=== PATIENT | male | born 1965 | race Hispanic/Latino ===

== ENCOUNTER 2017-01-01 19:19 | Inpatient (IN) | payer MEDICARE, OTHER ==
[2017-01-01 19:19] VITALS: BMI 28.0
[2017-01-01 19:35] VITALS: O2SAT 98
[2017-01-01 20:32] LABS: RBC URINE 7 /hpf (0-3); URINE BACTERIA RARE (<OCC); URINE BILIRUBIN NEGATIVE (NEGATIVE); URINE BLOOD 1+ (NEGATIVE); URINE COLOR Yellow (YELLOW); URINE GLUCOSE (UA) NORMAL (Normal); URINE KETONE NEGATIVE (NEGATIVE); URINE LEUKOCYTE ESTERASE NEG Leu/uL (Negative); URINE PROTEIN NEGATIVE (NEGATIVE); WBC URINE 1 /hpf (0-5)
[2017-01-01 21:00] LABS: BASO % 0.6 % (0.0-2.0); EOS # 0.3 K/uL (0.0-0.7); EOS % 6.3 % (0.0-4.0); HEMATOCRIT 38.1 % (35.0-51.0); LYMPH # 2.1 K/uL (1.0-4.3); LYMPH % 40.3 % (20.0-40.0); MEAN CELL VOLUME 84.6 fL (80.0-94.0); MEAN CORPUSCULAR HEMOGLOBIN 28.1 pg (27.0-31.0); MEAN CORPUSCULAR HGB CONC 33.2 g/dL (33.0-37.0); MEAN PLATELET VOLUME 7.5 fL (7.2-11.7); MONO # 0.6 K/uL (0.0-0.8); MONO % 11.7 % (0.0-10.0); NRBC % 0.1 % (0.0-2.0); RED CELL DISTRIBUTION WIDTH 16.3 % (11.5-14.5); WHITE BLOOD COUNT 5.3 K/uL (4.8-10.8)
[2017-01-01 21:05] LABS: CHLORIDE 99 mmol/L (98-107); POTASSIUM 3.5 mmol/L (3.6-5.2); SODIUM 139 mmol/L (132-148)
[2017-01-01 21:07] LABS: ALB/GLOB RATIO 1.1 (1.0-2.1); ALKALINE PHOSPHATASE 60 U/L (38-126); ALT/SGPT 23 U/L (21-72); AST/SGOT 34 U/L (17-59); BILIRUBIN,TOTAL 0.3 mg/dL (0.2-1.3); BLOOD UREA NITROGEN 11 mg/dL (9-20); CARBON DIOXIDE 26 mmol/L (22-30); GFR AFRICAN-AMERICAN > 60; TOTAL PROTEIN 7.2 g/dL (6.3-8.3)
[2017-01-01 21:08] LABS: ALCOHOL SERUM < 10 mg/dl (0-10); CALCIUM 8.5 mg/dl (8.6-10.4); GLUCOSE,RANDOM 90 mg/dL (75-110)
--- NOTE | 2017-01-01 21:43 | C.PDOC ---
History Of Present Illness Patient presents to the ED for depression and thoughts of harming himself. Patient has no plan and denies homicidal thoughts or any other complaints. Patient has not been taking his medication. Time Seen by Provider: 01/01/17 20:14 Chief Complaint (Nursing): Psychiatric Evaluation History Per: Patient History/Exam Limitations: no limitations Onset/Duration Of Symptoms: Unknown Current Symptoms Are (Timing): Still Present Suicide/Self Injury Attempted (Context): None Modifying Factor(s): None Associated Symptoms: Depression, Suicidal Thoughts. denies: Suicidal Plan Involuntary Hold By: None Recent travel outside of the [place]: No Past Medical History Reviewed: Historical Data, Nursing Documentation, Vital Signs Vital Signs: Last Vital Signs Temp 97.4 F L 01/01/17 19:31 Pulse 62 01/01/17 19:31 Resp 16 01/01/17 19:31 BP 145/92 H 01/01/17 19:31 Pulse Ox 98 01/01/17 21:52 - Medical History PMH: Anxiety, Atrial Fibrillation, Bipolar Disorder, CAD, Depression, Hepatitis , HIV, HTN, Pneumonia, Post Traumatic Stress Disorder Denies: Diabetes, Chronic Kidney Disease, Seizures, Sexually Transmitted Disease - [facility] GROUP PSYCHOTHERAPY (12/11/16) INDIVIDUAL PSYCHOTHERAPY, SUPPORTIVE (12/11/16) MEASURE OF CARDIAC SAMPL & PRESSURE, L HEART, PERC APPROACH (11/22/16) MEDICATION MANAGEMENT (12/11/16) PLAIN RADIOGRAPHY OF LEFT HEART USING LOW OSMOLAR CONTRAST (11/22/16) Family History: States: Unknown Family Hx - Social History Hx Tobacco Use: Yes Hx Alcohol Use: Yes (in recovery) Hx Substance Use: Yes (in recovery) - Immunization History Hx Tetanus Toxoid Vaccination: No Hx Influenza Vaccination: No Hx Pneumococcal Vaccination: No Review Of Systems Gastrointestinal: Negative for: Nausea, Vomiting, Diarrhea Psych: Positive for: Depression, Suicidal ideation (no plan) Physical Exam - Physical Exam Appears: Non-toxic Skin: Warm, Dry Extremity: Normal ROM, No Tenderness Neurological/Psych: Oriented x3 ED Course And Treatment - Laboratory Results Result Diagrams: 01/01/17 20:49 01/01/17 20:49 O2 Sat by Pulse Oximetry: 98 Disposition Discussed With : Rao Monsalve Comment: accepted the pt on his service and took over the care at 10:14 PM Doctor Will See Patient In The: Hospital Counseled Patient/Family Regarding: Studies Performed, Diagnosis - Disposition Disposition: HOSPITALIZED Disposition Time: 21:43 Condition: FAIR - POA Present On Arrival: None - Clinical Impression Clinical Impression: Bipolar 1 disorder - Scribe Statement The provider has reviewed the documentation as recorded by the Scribe Yue Pendleton All medical record entries made by the Scribe were at my direction and personally dictated by me. I have reviewed the chart and agree that the record accurately reflects my personal performance of the history, physical exam, medical decision making, and the department course for this patient. I have also personally directed, reviewed, and agree with the discharge instructions and disposition. Decision To Admit - Pt Status Changed To: Hospital Disposition Of: Inpatient - Admit Certification Admit to Inpatient:: After my assessment, the patient will require hospitalization for at least two midnights. This is because of the severity of symptoms shown, intensity of services needed, and/or the medical risk in this patient being treated as an outpatient. - InPatient: Physician Admission Certification: I certify that this patient requires 2 or more midnights of care for the following reason:: After my assessment, the patient will require hospitalization for at least two midnights. This is because of the severity of symptoms shown, intensity of services needed, and/or the medical risk in this patient being treated as an outpatient. - . Bed Request Type: Psychiatry Admitting Physician: Rao Monsalve Patient Diagnosis: Bipolar 1 disorder
[2017-01-02] MEDS ORDERED: Pneumococcal 23-Valent Vaccine IM ONE (01:36)
[2017-01-02] MEDS ORDERED: Influenza Virus Vaccine 45 mcg/0.5 ml Syr IM ONE (01:36)
--- NOTE | 2017-01-02 14:22 | PCM.PSYCH ---
Initial Psychiatric Evaluation - Initial Psychiatric Evaluation History of Present Illness and Precipitating Events: Patient refuses to talk, refuses to provide any information. Very uncooperative. We will attempt to evaluate patient later. Current Medications: Active Medications Generic Name Dose Route Start Last Admin Trade Name Freq PRN Reason Stop Dose Admin Trazodone HCl 150 mg 01/02/17 00:37 Desyrel PO HS PRN Sleep Past Psychiatric History - Past Psychiatric History Pertinent Medical Hx (Current Medical&Sleep Prob, Allergies): Allergies Allergy/AdvReac Type Severity Reaction Status Date / Time FISH Allergy Intermediate Verified 01/01/17 19:36 metoprolol Allergy Verified 01/01/17 19:36 Divalproex [Depakote DR] 500 mg PO BID 11/22/16 Gabapentin [Neurontin] 600 mg PO QID 11/22/16 Haloperidol [Haldol] 10 mg PO BID 11/22/16 OXcarbazepine [Trileptal] 600 mg PO TID 11/22/16 diltiaZEM [Diltiazem HCl] 30 mg PO QID #56 tab 12/06/16 Citalopram Hydrobromide [Celexa] 20 mg PO DAILY 12/09/16 traZODone [Desyrel] 150 mg PO DAILY 12/09/16
[2017-01-02] MEDS: Divalproex 500 mg DR Tab PO SCH (19:20)
[2017-01-03] MEDS: Divalproex 500 mg DR Tab PO SCH ×2 (10:16→18:29)
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
[2017-01-04] MEDS: Divalproex 500 mg DR Tab PO SCH ×2 (09:49→17:12)
--- NOTE | 2017-01-04 12:45 | PCM.PYCHPN ---
Psychiatric Progress Note - Psychiatric Progress Note Patient seen today, length of contact: 15 min Patient Chief Complaint: I'm still feeling irritable Problems Identified/Issues Discussed: Patient seen and evaluated, chart reviewed and discussed with the nurse. Patient reports irritability and agitation. He reports racing of thoughts and flight of ideas and anxiety. He remained isolated and withdrawn. However he remained calm and cooperative. He has started attending groups, started taking medication and denies any side effects. Supportive therapy and psychoeducation were given Medication Change: Yes (Increase Depakote) Medical Record Reviewed: Yes Mental Status Examination - Cognitive Function Orientation: Person, Place, Situation, Time Memory: Intact Attention: WNL Concentration: Poor Association: WNL Fund of Knowledge: Poor - Mood Mood: Depressed - Affect Affect: Depressed - Speech Speech: Soft - Formal Thought Process Formal Thought Process: Flight of ideas - Suicidal Ideation Suicidal Ideation: No - Homicidal Ideation Homicidal Ideation: No Goal/Treatment Plan - Goal/Treatment Plan Need for Continued Stay: Discharge may exacerbated symptoms, Severe functional impairment Progress Toward Problem(s) and Goals/Treatment Plan: Bipolar 1 disorder most recent episode depressed Cocaine use disorder severe Alcohol use disorder Patient education Supportive therapy Trileptal. Celexa, gabapentin, Depakote and trazodone. - Smoking Cessation Smoking Cessation Initiated: No
[2017-01-04] MEDS: Bismuth Subsalicylate 262 mg/15 ml Sus (240 ml) PO PRN (21:51)
[2017-01-05 08:29] VITALS: RESP 20
[2017-01-05] MEDS: Divalproex 500 mg DR Tab PO SCH ×2 (09:49→17:40)
--- NOTE | 2017-01-05 12:33 | PCM.PYCHPN ---
Psychiatric Progress Note - Psychiatric Progress Note Patient seen today, length of contact: 18 min Problems Identified/Issues Discussed: Patient seen and evaluated, chart reviewed and discussed with the nurse. Patient reports improvement in his mood and reports that Depakote is helping him. However he still reports racing of thoughts and flight of ideas. He has started attending groups and reports irritability and anxiety. He denies any auditory or visual hallucinations and denies any suicidal ideation or homicidal ideation. He remained calm and cooperative and taking medication and denies any side effects. Supportive therapy and psychoeducation were given Medication Change: Yes (Increase Depakote) Medical Record Reviewed: Yes Mental Status Examination - Cognitive Function Orientation: Person, Place, Situation, Time Memory: Intact Attention: WNL Concentration: WNL Association: WNL Fund of Knowledge: Poor - Mood Mood: Anxious - Affect Affect: Constricted - Speech Speech: Soft - Formal Thought Process Formal Thought Process: No Impairment - Suicidal Ideation Suicidal Ideation: No - Homicidal Ideation Homicidal Ideation: No Goal/Treatment Plan - Goal/Treatment Plan Need for Continued Stay: Discharge may exacerbated symptoms, Severe functional impairment Progress Toward Problem(s) and Goals/Treatment Plan: Bipolar 1 disorder most recent episode depressed Cocaine use disorder severe Alcohol use disorder Patient education Supportive therapy Trileptal. Celexa, gabapentin, Depakote and trazodone. - Smoking Cessation Smoking Cessation Initiated: No
[2017-01-05] MEDS: Bismuth Subsalicylate 262 mg/15 ml Sus (240 ml) PO PRN (16:50)
--- NOTE | 2017-01-06 08:47 | PCM.PYCHDC ---
Mental Status Examination - Mental Status Examination Orientation: Person, Place, Situation, Time Memory: Intact Mood: Euphoric Affect: Constricted Speech: Soft Attention: WNL Concentration: WNL Association: WNL Fund of Knowledge: WNL Formal Thought Process: No Impairment Description of patient's judgement and insight: good, fair Psychotic Thoughts and Behaviors: denies any AVH Suicidal Ideation: No Current Homicidal Ideation?: No Discharge Summary - Discharge Note Reason for Hospitalization: Patient is a 51 years old, single, unemployed, on SSDI, male with history of bipolar disorder, currently noncompliant with treatment was admitted because of worsening depression. Patient reported he stopped taking his medication for more than one month ago for no reason. Started feeling increasingly depressed with decreased sleep and appetite but gained 20 pounds over one month. Reported having suicidal ideation, last had one month ago. History of 4 suicidal attempts by overdose, walking in traffic injecting HIV infected blood into his veins. Reported had in 2013 but he was not admitted in the hospital. Denied any psychotic symptoms. I history of manic episodes in the past. Alcohol: He was guarded about substance use but reported his last use of alcohol was one month ago. Cocaine: Started at the age of 15 years. Reported he was using a lot every day. he was reported 2 months ago. Consultations:: List each consultation separately and include: 1. Reason for request. 2. Findings. 3. Follow-up Summary of Hospital Course include:: 1. Description of specific treatment plan utilized for patients during their course of treatmen. 2. Summarize the time- course for resolution of acute symptoms and/or regressed behaviors. 3. Describe issues identified and worked on during hospitalization. 4. Describe medication utilized. 5. Describe medical problems identified and treated. 6. Reassessment of suicide risk Summary of Hospital Course: During the course of his stay, patient (pt) started progressively improving and he no longer remained irritable, depressed, and suicidal. His mood was improved and he started attending groups and meetings and started socializing. Patient denied any feelings of hopelessness, helplessness, and worthlessness, denied any problem with the sleep or appetite, denied suicidal ideation or homicidal ideation. Pt denied any auditory or visual hallucinations. Some changes were made in his current medications and patient was discharged on following medications. He tolerated these medications very well and denied any side effects. - Final Diagnosis (DSM 5) Condition upon Discharge: FAIR DSM 5: Bipolar 1 disorder most recent episode depressed Cocaine use disorder severe Alcohol use disorder Disposition: HOME/ ROUTINE Follow-up Treatment Plan: Education: Pt was educated and counseled about the risks and benefits of taking and not taking medications. Pt was educated and counseled about the risks of drinking and abusing drugs. Pt was educated and counseled to go to the ER or call 911 if pt develop suicidal ideation or homicidal ideation, worsening of symptoms or severe side effects of the meds. Prescriptions/Medication Reconciliation: Divalproex [Depakote DR] 500 mg PO BID 30 Days traZODone [Desyrel] 200 mg PO HS PRN 30 Days PRN Reason: Sleep Gabapentin [Neurontin] 600 mg PO TID #90 tab OXcarbazepine [Trileptal] 300 mg PO BID #60 tab Citalopram [celEXA] 20 mg PO DAILY #30 tab - Smoking Cessation Smoking Cessation Medication prescribed: No - Antipsychotic Medications Pt discharged on 2 or more routine antipsychotic medications: No
[2017-01-06 11:06] VITALS: BP 136/84; PULSE 50; TEMP 98.1
== END 2017-01-06 08:15 | disposition home or self-care (01) | DRG 885 ==
LOC: C.ER 19:19 → C.5E 22:14
PROC: GZ3ZZZZ Medication Management (ICD-10-PCS; principal; 2017-01-01)
PROC: GZHZZZZ Group Psychotherapy (ICD-10-PCS; 2017-01-01)
PROC: GZ56ZZZ Individual Psychotherapy, Supportive (ICD-10-PCS; 2017-01-01)
PROC: HZ36ZZZ Individual Counseling for Substance Abuse Treatment, Psychoeducation (ICD-10-PCS; 2017-01-01)
DX: F31.30 Bipolar disorder, current episode depressed, mild or moderate severity, unspecified (principal); R45.851 Suicidal ideations; F14.10 Cocaine abuse, uncomplicated; F10.10 Alcohol abuse, uncomplicated; F17.210 Nicotine dependence, cigarettes, uncomplicated; G62.9 Polyneuropathy, unspecified; K21.9 Gastro-esophageal reflux disease without esophagitis; Z21 Asymptomatic human immunodeficiency virus [HIV] infection status; I25.10 Atherosclerotic heart disease of native coronary artery without angina pectoris; I10 Essential (primary) hypertension; F43.10 Post-traumatic stress disorder, unspecified; Z91.14 Patient's other noncompliance with medication regimen; Z95.2 Presence of prosthetic heart valve; Z71.6 Tobacco abuse counseling

== ENCOUNTER 2017-01-22 16:14 | Emergency (ER) | payer MEDICARE, OTHER ==
[2017-01-22 16:29] VITALS: BMI 32.1
[2017-01-22 16:31] VITALS: O2SAT 97
[2017-01-22 17:02] LABS: BASO # 0.1 K/uL (0.0-0.2); BASO % 1.7 % (0.0-2.0); EOS # 0.1 K/uL (0.0-0.7); EOS % 1.8 % (0.0-4.0); LYMPH # 1.9 K/uL (1.0-4.3); LYMPH % 25.1 % (20.0-40.0); MEAN CELL VOLUME 84.6 fL (80.0-94.0); MEAN CORPUSCULAR HGB CONC 33.1 g/dL (33.0-37.0); MEAN PLATELET VOLUME 7.7 fL (7.2-11.7); MONO # 0.7 K/uL (0.0-0.8); MONO % 9.1 % (0.0-10.0); RED CELL DISTRIBUTION WIDTH 15.1 % (11.5-14.5); WHITE BLOOD COUNT 7.8 K/uL (4.8-10.8)
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
[2017-01-22 17:12] LABS: CHLORIDE 103 mmol/L (98-107); SODIUM 140 mmol/L (132-148)
[2017-01-22 17:13] LABS: POTASSIUM 3.8 mmol/L (3.6-5.2)
[2017-01-22 17:15] LABS: ALB/GLOB RATIO 1.1 (1.0-2.1); ALKALINE PHOSPHATASE 62 U/L (38-126); AST/SGOT 38 U/L (17-59); BILIRUBIN,TOTAL 0.5 mg/dL (0.2-1.3); BLOOD UREA NITROGEN 15 mg/dL (9-20); CARBON DIOXIDE 21 mmol/L (22-30); GFR AFRICAN-AMERICAN > 60; GLUCOSE,RANDOM 111 mg/dL (75-110); TOTAL PROTEIN 8.1 g/dL (6.3-8.3)
[2017-01-22 17:16] LABS: ALCOHOL SERUM < 10 mg/dl (0-10); ALT/SGPT 19 U/L (21-72); CALCIUM 8.9 mg/dl (8.6-10.4)
[2017-01-22 17:17] LABS: RBC URINE 11 /hpf (0-3); URINE BACTERIA RARE (<OCC); URINE BILIRUBIN NEGATIVE (NEGATIVE); URINE BLOOD 1+ (NEGATIVE); URINE COLOR Yellow (YELLOW); URINE GLUCOSE (UA) NORMAL (Normal); URINE KETONE NEGATIVE (NEGATIVE); URINE LEUKOCYTE ESTERASE NEG Leu/uL (Negative); URINE PROTEIN 1+ mg/dL (NEGATIVE); WBC URINE 1 /hpf (0-5)
[2017-01-22 19:41] VITALS: BP 139/80; PULSE 53; RESP 18; TEMP 97.9
--- NOTE | 2017-01-27 13:56 | CARD ---
APPROVED REPORT EKG Measurement Heart [id number] <Conclusion> Sinus bradycardia Otherwise normal ECG
== END 2017-01-22 20:12 | disposition home or self-care (01) ==
LOC: C.ER 16:14
DX: F31.9 Bipolar disorder, unspecified (principal); F14.10 Cocaine abuse, uncomplicated
CPT/HCPCS: 80053; 81001; 85025; 99285; G0480

== ENCOUNTER 2017-01-25 10:51 | Emergency (ER) | payer MEDICARE, OTHER ==
[2017-01-25 10:51] VITALS: BMI 32.1
[2017-01-25 11:14] VITALS: BP 128/83; PULSE 60; RESP 18; TEMP 97.7; O2SAT 100
--- NOTE | 2017-01-25 12:07 | C.PDOC ---
History Of Present Illness REQUESTING PSYCH MED REFILL FOR 30 DAYS. PS MEDS STOLEN 1 WEEK AGO. SEEN 01/22 AND DC. PS TRYING TO GET INTO [employer] BUT CAN'T BE ACCEPTED WO A 30 DAY SUPPLY. PS TRIED TO SCHEDULE W [facility] BUT WAS TOLD NO APPT FOR 3 WEEKS. EXAM NEG Chief Complaint (Nursing): Med Refill History Per: Patient History/Exam Limitations: no limitations Current Symptoms Are (Timing): Still Present Recent travel outside of the [place]: No Past Medical History Reviewed: Historical Data, Nursing Documentation, Vital Signs Vital Signs: Last Vital Signs Temp 97.7 F 01/25/17 11:13 Pulse 60 01/25/17 11:13 Resp 18 01/25/17 11:13 BP 128/83 01/25/17 11:13 Pulse Ox 100 01/25/17 12:21 - Medical History PMH: Anxiety, Atrial Fibrillation, Back Problems, Bipolar Disorder, CAD, Depression, Hepatitis, HIV, HTN, Pneumonia, Post Traumatic Stress Disorder - [facility] Procedures GROUP PSYCHOTHERAPY (01/01/17) INDIV VEGETABLE TIER FOR SUBSTANCE ABUSE TREATMENT, PSYCHOEDUCATION (01/01/17) INDIVIDUAL PSYCHOTHERAPY, SUPPORTIVE (01/01/17) MEASURE OF CARDIAC SAMPL & PRESSURE, L HEART, PERC APPROACH (11/22/16) MEDICATION MANAGEMENT (01/01/17) PLAIN RADIOGRAPHY OF LEFT HEART USING LOW OSMOLAR CONTRAST (11/22/16) Family History: States: Unknown Family Hx - Social History Hx Tobacco Use: Yes Hx Alcohol Use: Yes Hx Substance Use: Yes (Crystal meth, but has been sober since 11/20/2016) - Immunization History Hx Tetanus Toxoid Vaccination: No Hx Influenza Vaccination: No Hx Pneumococcal Vaccination: No Review Of Systems Except As Marked, All Systems Reviewed And Found Negative. Constitutional: Negative for: Fever, Chills Cardiovascular: Negative for: Chest Pain Respiratory: Negative for: Cough, Shortness of Breath Gastrointestinal: Negative for: Nausea, Vomiting, Abdominal Pain, Diarrhea Skin: Negative for: Rash Physical Exam - Physical Exam Appears: Non-toxic, No Acute Distress Skin: Normal Color, Warm, Dry Head: Atraumatic, Normacephalic Chest: Symmetrical Cardiovascular: Rhythm Regular Respiratory: Normal Breath Sounds, No Rales, No Rhonchi, No Wheezing Gastrointestinal/Abdominal: Soft, No Tenderness, No Guarding, No Rebound Back: Normal Inspection Extremity: Normal ROM, Capillary Refill (< 2 sec.) Neurological/Psych: Oriented x3, Normal Speech, Normal Cognition ED Course And Treatment O2 Sat by Pulse Oximetry: 100 (RA) Pulse Ox Interpretation: Normal - Physician Consult Information Time Consulting Physician Contacted: 12:07 Outcome Of Conversation: D/W CRISIS BERTHA WILL EVAL IN ER Disposition Counseled Patient/Family Regarding: Diagnosis, Need For Followup, Rx Given - Disposition Referrals: [facility] [Outside] [facility] [Outside] [facility] [Provider Group] Disposition: HOME/ ROUTINE Disposition Time: 12:30 Condition: GOOD Prescriptions: Citalopram Hydrobromide [Celexa] 20 mg PO DAILY #5 tablet Divalproex [Depakote DR] 500 mg PO BID 10 Days traZODone [Desyrel] 200 mg PO DAILY #5 tab Gabapentin [Neurontin] 600 mg PO QID #20 tablet OXcarbazepine [Trileptal] 300 mg PO BID #15 tab Instructions: Medicine Refill (ED) - Clinical Impression Clinical Impression: Medication refill - Scribe Statement The provider has reviewed the documentation as recorded by the Hao Mason Provider Attestation: All medical record entries made by the Hao were at my direction and personally dictated by me. I have reviewed the chart and agree that the record accurately reflects my personal performance of the history, physical exam, medical decision making, and the department course for this patient. I have also personally directed, reviewed, and agree with the discharge instructions and disposition.
== END 2017-01-25 12:40 | disposition home or self-care (01) ==
LOC: C.ER 10:51
DX: Z76.0 Encounter for issue of repeat prescription (principal)